=== PATIENT | female | born 1950 | race Caucasian/White ===

== ENCOUNTER 2020-07-15 02:10 | Emergency (ER) | payer OTHER ==
[~2020-07-15] VITALS: Ht 157.5 cm; Wt 68.0 kg
[2020-07-15] MEDS ORDERED: CLONAZEPAM0.5 MG (02:19)
[2020-07-15] MEDS ORDERED: GLIMEPIRIDE4 MG PO (12:46)
[2020-07-15] MEDS ORDERED: METFORMIN HCL500 M3 PO (12:46)
== END 2020-07-15 13:04 | disposition home or self-care (01) ==
LOC: ER 02:10
DX: E11.65 Type 2 diabetes mellitus with hyperglycemia (principal); K29.60 Other gastritis without bleeding; Z79.84 Long term (current) use of oral hypoglycemic drugs

== ENCOUNTER 2020-08-13 19:12 | Emergency (ER) | payer OTHER ==
[~2020-08-13] VITALS: Ht 157.5 cm; Wt 83.9 kg
[~2020-08-13 19:12] MED LIST: CLONAZEPAM0.5 MG; GLIMEPIRIDE4 MG PO; METFORMIN HCL500 M3 PO
== END 2020-08-15 10:26 | disposition home or self-care (01) ==
LOC: ER 19:12
DX: E11.65 Type 2 diabetes mellitus with hyperglycemia (principal); Z79.4 Long term (current) use of insulin